=== PATIENT | female | born 2005 | race Caucasian/White ===

== ENCOUNTER 2024-03-24 11:58 | Inpatient (IN) | payer OTHER ==
[~2024-03-24] VITALS: Ht 162.6 cm; Wt 55.8 kg
[2024-03-24 12:11] VITALS: O2SAT 98
[2024-03-24 12:34] LABS: CLARITY URINE CLEAR (CLEAR); COLOR URINE YELLOW (YELLOW); GLUCOSE URINE NEGATIVE (NEGATIVE); KETONES URINE NEGATIVE (NEGATIVE); LEUKOCYTE ESTERASE URINE NEGATIVE (NEGATIVE); NITRITE URINE NEGATIVE (NEGATIVE); OCCULT BLOOD URINE NEGATIVE (NEGATIVE); PH URINE 5.5 (4.5-8.0); PROTEIN URINE 1+ (NEGATIVE)
[2024-03-24 12:46] LABS: MUCUS URINE 3+ /lpf (< = 2+); SQUAMOUS EPITHELIAL CELL URINE 1+ /lpf (RARE/1+)
[2024-03-24 12:47] LABS: BACTERIA URINE TRACE; RBC URINE 0-2 /hpf (0-2); WBC URINE 0-2 /hpf (0-2)
[2024-03-24 12:48] LABS: BASOPHILS % 0.2 % (0.0-2.0); EOSINOPHILS % 0.2 % (0.0-5.0); HEMATOCRIT. 38.1 % (36.0-48.0); HEMOGLOBIN. 12.9 g/dL (12.0-16.0); LYMPHOCYTES % 7.1 % (20.0-50.0); MEAN CORPUSCULAR HEMOGLOBIN 30.7 pg (28.0-32.0); MEAN CORPUSCULAR HGB CONC 33.9 g/dL (31.0-37.0); MEAN CORPUSCULAR VOLUME 90.6 fL (81.0-99.0); MEAN PLATELET VOLUME 8.9 fl (7.4-10.4); MONOCYTES % 7.7 % (2.0-8.0); NEUTROPHILS % 84.8 % (40.0-76.0); PLATELET 207 x1000/uL (130-400); RED BLOOD CELL COUNT 4.21 mill/uL (4.2-5.4); RED CELL DISTRIBUTION WIDTH 12.6 % (11.6-14.6); WHITE BLOOD COUNT 19.3 x1000/uL (4.5-11.0)
[2024-03-24 12:55] LABS: PROTHROMBIN TIME 11.6 sec (9.6-11.0)
[2024-03-24 13:02] LABS: CARBON DIOXIDE 23 mEq/L (21-32); CHLORIDE 109 mEq/L (98-107); POTASSIUM 3.7 mEq/L (3.5-5.1); SODIUM 139 mEq/L (136-145)
[2024-03-24 13:03] LABS: CALCIUM 9.5 mg/dL (8.7-10.4)
[2024-03-24 13:08] LABS: GLUCOSE 93 mg/dL (70-105); UREA NITROGEN BLOOD 17 mg/dL (9-23)
[2024-03-24 13:09] LABS: ALANINE AMINOTRANSFERASE 19 IU/L (10-49); ALBUMIN 4.5 g/dL (3.2-4.8); ASPARTATE AMINOTRANSFERASE 25 IU/L (<34)
[2024-03-24 13:10] LABS: BILIRUBIN DIRECT 0.2 mg/dL (<=3.0); BILIRUBIN TOTAL 0.6 mg/dL (0.1-1.0); HCG SCREEN NEGATIVE; PROTEIN TOTAL 7.5 g/dL (6.0-8.3)
[2024-03-24] MEDS: LACTATED RINGERS 1,000 ML IV ONE (15:10)
[2024-03-24] MEDS: IOHEXOL-350 100 ML BOTTLE ONE (15:14)
[2024-03-24] MEDS ORDERED: DEXTROSE 50% WATER 50ML SYRINGE IV PRN (20:00)
[2024-03-24] MEDS ORDERED: IPRATROPIUM/ALBUTEROL 0.5-3(2.5)MG/3ML NEB HHN PRN (20:00)
[2024-03-24] MEDS ORDERED: MAGNESIUM/ALUMINUM HYDROXIDE/SIMETHICONE 30ML UDC PO PRN (20:00)
[2024-03-24] MEDS ORDERED: DOCUSATE SODIUM 100MG CAPSULE PO PRN (20:00)
[2024-03-24] MEDS ORDERED: GUAIFENESIN 200MG/10ML SUGAR FREE UDC PO PRN (20:00)
[2024-03-24] MEDS ORDERED: ONDANSETRON HCL 4MG/2ML INJ IV PRN (20:00)
[2024-03-24] MEDS ORDERED: CLONIDINE 0.1MG TABLET PO PRN (20:00)
[2024-03-24] MEDS ORDERED: PIPERACILLIN/TAZO 3.375G/50ML 50 ML IV ONE (22:00)
[2024-03-25 00:30] VITALS: BP 123/87; PULSE 74; RESP 17; TEMP 37.1408
[2024-03-25] MEDS: ACETAMINOPHEN 325MG TABLET PO PRN (00:36)
[2024-03-25 00:42] VITALS: BP 123/99; PULSE 74; RESP 17; TEMP 37.11408; O2SAT 99
[2024-03-25 04:00] VITALS: BP 117/80; PULSE 71; RESP 17; TEMP 36.6696
[2024-03-25 08:00] VITALS: BP 113/73; PULSE 85; RESP 20; TEMP 36.72516; O2SAT 98
[2024-03-25] MEDS: PANTOPRAZOLE SODIUM 40 MG/VIAL IV SCH (08:21)
[2024-03-25 08:28] LABS: BASOPHILS % 0.4 % (0.0-2.0); EOSINOPHILS % 0.8 % (0.0-5.0); HEMATOCRIT. 35.1 % (36.0-48.0); HEMOGLOBIN. 11.7 g/dL (12.0-16.0); LYMPHOCYTES % 28.7 % (20.0-50.0); MEAN CORPUSCULAR HEMOGLOBIN 30.2 pg (28.0-32.0); MEAN CORPUSCULAR HGB CONC 33.5 g/dL (31.0-37.0); MEAN CORPUSCULAR VOLUME 90.2 fL (81.0-99.0); MEAN PLATELET VOLUME 9.4 fl (7.4-10.4); MONOCYTES % 9.9 % (2.0-8.0); NEUTROPHILS % 60.2 % (40.0-76.0); PLATELET 189 x1000/uL (130-400); RED BLOOD CELL COUNT 3.89 mill/uL (4.2-5.4); RED CELL DISTRIBUTION WIDTH 12.7 % (11.6-14.6); WHITE BLOOD COUNT 8.2 x1000/uL (4.5-11.0)
[2024-03-25 08:47] LABS: CHLORIDE 108 mEq/L (98-107); POTASSIUM 3.7 mEq/L (3.5-5.1); SODIUM 140 mEq/L (136-145)
[2024-03-25 08:48] LABS: CALCIUM 9.5 mg/dL (8.7-10.4); CARBON DIOXIDE 25 mEq/L (21-32)
[2024-03-25 08:53] LABS: GLUCOSE 78 mg/dL (70-105); TRIGLYCERIDE 80 mg/dL (0-150)
[2024-03-25 08:54] LABS: LDL CHOLESTEROL 93 mg/dL (5-100); UREA NITROGEN BLOOD 15 mg/dL (9-23)
[2024-03-25 08:55] LABS: CHOLESTEROL 144 mg/dL (<200); CREATINE KINASE 95 IU/L (34-145); HDL CHOLESTEROL 36 mg/dL (>65)
[2024-03-25 08:56] LABS: T4 FREE 1.13 ng/dL (0.89-1.76); THYROID STIMULATING HORMONE 1.33 uIU/mL (0.55-4.78)
[2024-03-25 12:00] VITALS: BP 112/66; PULSE 78; RESP 20; TEMP 36.16956; O2SAT 99
[2024-03-25 16:00] VITALS: BP 109/65; PULSE 70; RESP 20; TEMP 36.3918; TEMP 36.39180; O2SAT 98
== END 2024-03-25 20:30 | disposition home or self-care (01) | DRG 760 ==
LOC: ER 11:58 → EDBEDREQ 14:53 → 6WST 17:46 → EDBEDREQ 18:17
PROVIDERS: ADMIT Internal Medicine; ATTEND Internal Medicine
DX: N83.201 Unspecified ovarian cyst, right side (principal); R65.10 Systemic inflammatory response syndrome (SIRS) of non-infectious origin without acute organ dysfunction; F41.9 Anxiety disorder, unspecified; F32.A Depression, unspecified
CPT/HCPCS: 36415; 74177; 76856; 80048; 80061; 80076; 81003; 82550; 83735; 84100; 84439; 84443; 84703; 85025; 86850; 86900; 99285; J2470; J7120; Q9967